=== PATIENT | female | born 1930 | race Caucasian/White ===

== ENCOUNTER 2016-04-20 17:13 | Inpatient (IN) | payer MEDICARE ==
[~2016-04-20] VITALS: Ht 177.8 cm; Wt 64.7 kg
--- NOTE | ~2016-04-20 | ECH ---
Transthoracic Echocardiography Report (TTE) Demographics Patient Name MAVIS BRENNAN Date of Study 04/21/2016 Patient Number [id number] Visit Number [id number] Date of 1930 Room Number 404 Accession Number [id number] Gender Female Age 86 year(s) Referring Devika Steiner MD Shopper Blanca Whaley Physician RDCS Physician Interpreting Cristina WAN Water Pollution Specialist Physician Allan Supervising Ordering Physician Devika Steiner MD, MD/MLP Nurse Stress Cane Flume Chute Operator Conclusions Contractility Score Summary Normal Left Ventricular contractility was noted. Summary Technically good exam. The estimated left ventricular ejection fraction is 60%. Mild concentric left ventricular hypertrophy. The left atrium is moderately dilated by LA volume index measurement. Informed consent was obtained, bubble study was done, there is no evidence for a PFO or ASD. Mild prolapse of the anterior mitral valve leaflet(s). Mild posteriorly directed mitral regurgitation by color Doppler. There is mild aortic regurgitation by color Doppler. Mild tricuspid regurgitation by color Doppler. There is mild pulmonary hypertension. The pulmonary pressure (RVSP) is 42 mmHg. Recommendation The patient will be given the results of this study by the physician who ordered the exam. Procedure Type of Study TTE procedure:Echo Complete SF. Procedure Date Date: 04/21/2016 Start: 01:25 PM Technical Quality: Good visualization Indications:CVA and Atrial fibrillation. Appropriate Use Criteria: 9 Height: 70 inches Weight: 143 pounds BSA: 1.81 m Rhythm: Atrial fibrillation HR: 64 bpm BP: 166/103 mmHg M-Mode/2D Measurements LV Diastolic Dimension: 4.55 cm LV Systolic Dimension: 2.98 cm LV Septum Diastolic: 1.03 cm LV PW Diastolic: 0.99 cm AO Root Dimension: 3.2 cm Cardiac Output: 3.08 l/min LA Dimension: 3.97 cm Cardiac Index: 1.7 l/min*m RV Diastolic Dimension: 2.59 cm LA volume index: 44 ml/m LVOT: 1.95 cm LVOT VTI: 16.14 cm RV Base: 2.3 cm LV Stroke volume: 48.18 ml RV Mid: 1.6 cm LV Stroke volume index: 26.62 ml/m TAPSE: 1.8 cm TDI-S': 11 cm/s Doppler Measurements AV Peak Velocity: 1.1 m/s MV Peak E-Wave: 0.93 m/s AV Peak Gradient: 4.84 mmHg AV Mean Gradient: 2.45 mmHg MV P1/2t: 57.8 msec LVOT Peak Velocity: 0.92 m/s AV Area (Continuity):2.41 cm AV P1/2t: 557 msec MV Area (PHT): 3.8 cm TR Velocity:3.06 m/s PV Peak Velocity: 0.68 m/s TR Gradient:37.45 mmHg PV Peak Gradient: 1.87 mmHg Estimated RAP:5 mmHg Estimated PASP: 42.45 mmHg Estimated RVSP: 42 mmHg E' Septal Velocity: 0.11 m/s E' Lateral Velocity: 0.13 m/s RA Area: 14.35 cm Findings Left Ventricle The left ventricle is normal in size . Mild concentric left ventricular hypertrophy. Diastolic function indeterminate due to patient's arrhythmia. Right Ventricle Normal right ventricle structure and function. Left Atrium The left atrium is moderately dilated by LA volume index measurement. Informed consent was obtained, bubble study was done, there is no evidence for a PFO or ASD. Right Atrium Normal right atrial size. Mitral Valve Mild prolapse of the anterior mitral valve leaflet(s). Mild posteriorly directed mitral regurgitation by color Doppler. Aortic Valve Normal aortic valve structure and function. There is mild aortic regurgitation by color Doppler. Tricuspid Valve Normal tricuspid valve structure and function. Mild tricuspid regurgitation by color Doppler. There is mild pulmonary hypertension. The pulmonary pressure (RVSP) is 42 mmHg. Pulmonic Valve Normal pulmonic valve structure and function. Mild pulmonic valve regurgitation by color Doppler. Pericardial Effusion No evidence of pericardial effusion. Miscellaneous Visualized portions of the aortic root and ascending aorta appear normal in size. Pleural Effusion No evidence of pleural effusion. Contractility Score LV regional wall motion:(0-Non visualized 1-Normal 2-Hypokinesis 3-Akinesis 4-Dyskinesis 5-Aneurysm) Signature
--- NOTE | 2016-04-27 13:28 | ER ---
ADMIT: 04/20/2016 RM/LOC: 404 [facility] MR#: [id number] [address] [facility] [place], [place] [address] MAVIS BRENNAN [address] [place] [address] Emergency Room Report SEX: F AGE: 86 : 1930 DATE: 04/20/2016 ADDENDUM: This patient comes to the ER because she is in an independent living. They were noticed that no one had talked to her for 2 or 3 days. They went in and found her on the floor today covered in feces and urine. She is confused and she denies any pain. PHYSICAL EXAMINATION: I do not notice any injuries. I palpated through her head and her extremities and did not elicit any pain. Her abdomen is soft and her lungs sound clear. Her white count was normal, her lactic acid was 3.1, her CK was 731, MB was 9.3, and she had positive leukocyte esterase in her urine and positive nitrites and numerous white cells. It was also noted that she had AFib and her family does not remember her having AFib in the past. There were no meds that she was on that suggested that. CT scan showed a subacute stroke. I did speak with Dr. Fortune, and he will admit this patient. DIAGNOSES: 1. Subacute stroke. 2. Urinary tract infection. 3. Atrial fibrillation. IV of normal saline was started. We did do sepsis protocol on the patient. She was given Levaquin. I spoke with Dr. Fortune, and he will admit the patient. Please see his dictation. PARUL Jimenez / Navin Hernandez MD / sinal JOB #: [id number] CC: Charles Fortune MD, Attending Physician Charles Fortune MD, Family Physician
[2016-05-19] MEDS ORDERED: COUMADIN5 MG PO (11:37)
[2016-05-19] MEDS ORDERED: COREG DPS12.5 MG PO (11:37)
[2016-05-19] MEDS ORDERED: SINEMET 25/1001 TAB PO (11:38)
[2016-05-19] MEDS ORDERED: LANOXIN DPS0.125 MG PO (11:38)
[2016-05-19] MEDS ORDERED: SENOKOT S1 TAB PO ×2 (11:38→11:41)
[2016-05-19] MEDS ORDERED: VITAMIN D1000 UNIT PO (11:40)
[2016-05-19] MEDS ORDERED: MAALOX DPS30 ML PO (11:41)
[2016-05-19] MEDS ORDERED: DULCOLAX-DPS10 MG PR (11:41)
[2016-05-19] MEDS ORDERED: TYLENOL DPS325 MG PO (11:41)
[2016-05-19] MEDS ORDERED: EXELON1 EAC1 TD (11:41)
[2016-05-19] MEDS ORDERED: SPORTS CREAM85 GM TP (11:42)
--- NOTE | 2016-05-24 13:16 | HP ---
ADMIT: 04/20/2016 RM/LOC: 404 [facility] MR#: [id number] [address] [facility] [address] [place] [id number] [place] [address] History and Physical SEX: F AGE: 86 : 1930 DATE OF SERVICE: CHIEF COMPLAINT: 1. Stroke. 2. New onset atrial fibrillation. CLINICAL HISTORY: Venkat Brennan is an elderly , who came to live in the assisted living facility here in [place] from her home in [place], [place]. She used to live in a three-story home and it became increasingly more and more difficult for her to negotiate stairs etc,. Inherent in some of this was also some memory lapses which were intermittent, discounted by the family but seemingly more significant. She was in her usual state of good health but last seen approximately three days prior to being found. She was found on the floor of her apartment after no one had seen her for three days. This included the family or staffing at assisted living. She was found to be obviously been there for a while, covered in urine and apparently feces according to the ER reports. The family cannot corroborate her position she was found in as she was transferred to the emergency room, where they saw her post evaluation. PAST MEDICAL HISTORY: Obtained from the patient and her son. This includes bilateral total knee replacements, left ankle fracture with ORIF, prior diverticulitis with diverting colostomy and subsequent reanastomosis, prior appendicitis, and appendectomy. ILLNESSES: Mild memory impairment, chronic tremor and titubation, and hypertension. MEDICATIONS: 1. Primidone and Inderal for tremor. 2. Lisinopril and potassium for hypertension. SOCIAL HISTORY: She is a and lived by herself until approximately two months ago when she moved to assisted living in the [place] area. She has not established herself with a physician here in [place]. She does not smoke or drink. REVIEW OF SYSTEMS: Her son and her denied any prior cardiovascular disease, any prior knowledge of atrial fibrillation, palpitations, syncope, or prior stroke. On close questioning, son does admit that there were some memory lapses, but he minimizes them. She has not had any bowel or bladder incontinence in the past, recurrent infections, or recurrence of the diverticulitis. He is unsure whether she has had any colonoscopy at any time recently. FAMILY HISTORY: Noncontributory. PHYSICAL EXAMINATION: GENERAL: Examination reveals a white female. She does not know the current president, slightly off on her dates and believes that ADMIT: 04/20/2016 RM/LOC: 404 [facility] MR#: [id number] [address] [place] [id number] [place], [place] [address] [address] History and Physical SEX: F AGE: 86 : 1930 she is in [place], [place]. HEAD AND NECK: Shows minimal left facial weakness without specific other findings. NECK: I cannot detect any carotid bruits. There is no obvious goiter. CARDIAC: Her pulse rate today is 84 and regular, consistent with atrial fibrillation and controlled ventricular response. LUNGS: Clear. ABDOMEN: Benign. Incisions well healed without entrapment or hernia. EXTREMITIES: Preserved pulses. No ischemic changes. Significant weakness in left upper extremity, less or so in the left lower extremity. NEURO: I cannot tell whether there is extinguished visual loss on the left side. Her speech is faltering, consistent with her tremor. She does have significant titubation and seems to have fluent speech, however. She is edentulous and does not have her dentures in place at the current time. She answers questions for the most part appropriately. LABORATORY AND X-RAY DATA: EKG demonstrates atrial fibrillation with controlled ventricular response. There is no ischemia or signs of prior heart disease. Laboratory is as reported. Current blood pressure, however, is a little higher than we would like and falls out of the parameters that we requested to be followed. We will adjust such. IMPRESSION: 1. New onset atrial fibrillation. 2. Embolic stroke secondary to atrial fibrillation. 3. Hypertension. 4. Memory loss. 5. Titubation/significant tremor. 6. Status post bilateral knee replacements. 7. Status post diverticulitis with diverting colostomy and reanastomosis. 8. Status post appendectomy. We will start her on better hypertensive control and would like the nursing ADMIT: 04/20/2016 RM/LOC: 404 [facility] MR#: [id number] [address] [address] [place] [address] History and Physical SEX: F AGE: 86 : 1930 personnel to follow the parameters that have been given. P.R.N. hydralazine will be given. She is currently on heparin. I find no evidence currently of hemorrhagic stroke. We will follow this however with further imaging in the next 24 hours to exclude the possibility of the heparin triggering bland infarct becoming hemorrhagic. She is at risk for such. Unfortunately, we do not have to regain alternative because of her atrial fibrillation. Carotid ultrasound, echocardiogram, metabolic assessment, all will be undertaken on a timely basis with the emphasis on low-dose IV heparin protocol and hypertension control in the meantime. We will try and establish with family the provisions of her current living will, which they are not aware of in detail. Overall prognosis with significant stroke is guarded. We are hopeful that she will have some recovery. Charles Fortune MD/ bashir JOB #: [id number] CC: Charles Fortune, Attending Physician Charles Fortune, Family Physician
--- NOTE | 2016-07-05 12:38 | DS ---
ADMIT: 04/20/2016 RM/LOC: 404 [facility] MR#: [id number] [address] [place] [address] Discharge Summary SEX: F AGE: 86 : 1930 ADMISSION DATE: 04/20/2016 DISCHARGE DATE: 04/26/2016 DISMISSAL DIAGNOSES: 1. Cerebrovascular accident with left hemiplegia. 2. Chronic tremor with titubation. 3. Urinary tract infection. 4. Urinary retention. 5. New onset of atrial fibrillation. 6. Coumadin anticoagulation. 7. Probable mitral valve prolapse with mild mitral regurgitation. 8. Hypokalemia. 9. Urinary tract infection due to streptococcus mitis and/or viridans, resolved. 10.Acute right cerebral hemisphere infarction with possible petechial hemorrhage, right frontal lobe. 11.Mild memory impairment. 12.Left ventricular hypertrophy. 13.Chest pain, known cardiac. CLINICAL HISTORY: Venkat James came in with a stroke. The patient was found to have atrial fibrillation, believed to be new. She has a background history of chronic titubation, generalized weakness, mild memory loss, and was recently had been placed in a nursing facility, but had not established with a physician here in [place]. She had some mild memory lapses when staying independently on her own also contributing to her admission to the senior care. She is status post bilateral knee replacement and chronic essential tremor and titubation without definite Parkinson's features. She was admitted with left-sided weakness and this improved in the hospital setting. She demonstrated to have a urinary tract infection along with some mild retention and hypertension. Echocardiogram demonstrated mitral valve prolapse, mild mitral regurgitation, mild pulmonary hypertension. CRP was mildly elevated. Laboratory data were unremarkable including normal lipid profile, and carotid ultrasound was unremarkable. CT scan and subsequent MRI demonstrated an acute infarct in the right cerebral hemisphere with possible tiny petechial hemorrhage in one of the dominant infarct in the high right frontal lobe. This appeared to be a multicentric cerebral infarct in the distribution of the right middle cerebral artery. However, possibility of that showers into right cerebellar hemisphere may have also been the case, however, all these appeared to have the same age radiographically. Cervical spine MRI suggested advanced degenerative arthritis. ADMIT: 04/20/2016 RM/LOC: 404 [facility] MR#: [id number] [address] [place] [address] Discharge Summary SEX: F AGE: 86 : 1930 HOSPITAL COURSE: The patient was brought into the hospital with the acute stroke and new onset of atrial fibrillation. Anticoagulation was undertaken with heparin. We find indication for dual anticoagulation therapy. We watched her carefully, did not convert her to Coumadin initially because of our concern about the size of the watershed-type infarct and the small petechial changes in the MRI. Subsequently, however, we were able to convert her to oral Coumadin. She was able to take things orally without interval difficulties. IV digoxin was used for rate control. An evaluation with echocardiogram etc., were undertaken. Neurology was not available immediately, and management of blood pressure was a "primarily" targeted therapy. She demonstrated a urinary tract infection with the strep species, which cleared. She developed some chest discomfort appearing to be noncardiac without recurrence. There is no evidence of endocarditis or other secondary phenomenon, and she was evaluated by IRU and has been accepted as a candidate. Temporary use of a Atkins catheter was indicated because of persistent urinary retention and efforts for removal will be undertaken. 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 ADMIT: 04/20/2016 RM/LOC: 404 [facility] MR#: [id number] [address] [place] [address] Discharge Summary SEX: F AGE: 86 : 1930 DISCHARGE MEDICATIONS: She was dismissed to IRU: 1. Coreg 3.125 b.i.d. 2. Lanoxin 0.125 daily. 3. Micro-K 10 mEq t.i.d. 4. Norvasc 2.5 p.o. b.i.d. 5. Pepcid 20 mg b.i.d. 6. Zestoretic 20/12.5 daily. 7. She will complete her five day heparin transition protocol. Daily monitoring for a protime will be undertaken. Charles Fortune MD/ sinal JOB #: [id number] CC: Charles Fortune MD, Attending Physician Charles Fortune MD, Family Physician Keon Durbin MD
== END 2016-04-26 14:15 | disposition short-term general hospital (02) | DRG 65 ==
LOC: ER 17:13 → 4PCU 19:20
PROVIDERS: ADMIT Internal Medicine
DX: I63.9 Cerebral infarction, unspecified (principal); N39.0 Urinary tract infection, site not specified; G81.94 Hemiplegia, unspecified affecting left nondominant side; I48.91 Unspecified atrial fibrillation; R26.81 Unsteadiness on feet; E87.6 Hypokalemia; R07.89 Other chest pain; R33.9 Retention of urine, unspecified; I34.1 Nonrheumatic mitral (valve) prolapse; B95.4 Other streptococcus as the cause of diseases classified elsewhere; R41.3 Other amnesia; R25.1 Tremor, unspecified; I10 Essential (primary) hypertension; Z96.653 Presence of artificial knee joint, bilateral; Z93.3 Colostomy status

== ENCOUNTER 2016-04-26 10:06 | Inpatient (IN) | payer MEDICARE ==
[~2016-04-26] VITALS: Ht 177.8 cm; Wt 61.6 kg
--- NOTE | 2016-05-02 19:25 | NUR ---
05/01/16 DAY SHIFT SUMMARY: PT TOTALLY DEPENDENT FOR EATING. GROOMING, DRESSING, BLADDER (CATH) AND W/C PROPULSION.
--- NOTE | 2016-05-02 19:27 | NUR ---
DAY SHIFT SUMMARY: VERY LITTLE CHANGE FROM 05/01-IS TAKING FLUIDS BETTER, BUT STILL REQUIRES TOTAL ASSIST.
--- NOTE | 2016-05-05 18:55 | NUR ---
DAY SHIFT SUMMARY:MIN ASSIST W/EATING; SEE OT FIM/NOTES FOR SHOWERING, GROOMING,DRESSING AND SHOWER TRANSFER. TOTAL ASSIST FOR TOILETING, BLADDER CATHETER MANAGEMENT, BED/W/C TRANSFERS AND W/C PROPULSION
--- NOTE | 2016-05-10 19:37 | NUR ---
DAY SHIFT SUMMARY: PT'S EATING IS SUPERVISED AND COAXED; GROOMING, DRESSING, TOILETING, BLADDER MANAGEMENT (IN/OUT CATHS), TRANSFERS AND W/C PROPULSION ARE ALL TOTAL CARE
[2016-05-19] MEDS ORDERED: COREG DPS12.5 MG PO (11:37)
[2016-05-19] MEDS ORDERED: COUMADIN5 MG PO (11:37)
[2016-05-19] MEDS ORDERED: SENOKOT S1 TAB PO ×2 (11:38→11:41)
[2016-05-19] MEDS ORDERED: LANOXIN DPS0.125 MG PO (11:38)
[2016-05-19] MEDS ORDERED: SINEMET 25/1001 TAB PO (11:38)
[2016-05-19] MEDS ORDERED: VITAMIN D1000 UNIT PO (11:40)
[2016-05-19] MEDS ORDERED: TYLENOL DPS325 MG PO (11:41)
[2016-05-19] MEDS ORDERED: MAALOX DPS30 ML PO (11:41)
[2016-05-19] MEDS ORDERED: EXELON1 EAC1 TD (11:41)
[2016-05-19] MEDS ORDERED: DULCOLAX-DPS10 MG PR (11:41)
[2016-05-19] MEDS ORDERED: SPORTS CREAM85 GM TP (11:42)
--- NOTE | 2016-05-31 10:52 | CO ---
ADMIT: 04/26/2016 RM/LOC: 611 [facility] MR#: [id number] [address] [address] [place] [address] Consultation SEX: F AGE: 86 : 1930 DATE OF CONSULTATION: 05/04/2016 ATTENDING PHYSICIAN: Richard Lopes CONSULTING PHYSICIAN: Keon Durbin MD REASON FOR CONSULTATION: Parkinsonism. HISTORY OF PRESENT ILLNESS: The patient is an 86-year-old woman who was admitted on 04/20/2016, with an ischemic stroke which is due to new onset atrial fibrillation. The stroke is embolic. The workup did not reveal any carotid stenosis. TTE was with EF 60 and there was no PFO. LDL in fact was 46. The patient was appropriately started on anticoagulation, and after stabilization, she was discharged to inpatient rehabilitation unit. As per the chart review, the patient had some difficulty with the gait and tremor prior to the admission. I am unsure of what was the duration of the symptoms before. MEDICATIONS: On outpatient basis originally include Coumadin and lisinopril. For current medications, please see EMR. PAST MEDICAL HISTORY: Bilateral knee replacement, ankle fracture on the left with ORIF, diverticulitis with diverting colostomy, appendectomy, cognitive impairment versus early dementia, chronic tremor, gait abnormality. SOCIAL HISTORY: No smoking or alcohol intake. ALLERGIES: NONE. FAMILY HISTORY: Noncontributory to current presentation. REVIEW OF SYSTEMS: Hard to obtain from the patient secondary to her reduced cognition. PHYSICAL EXAMINATION: VITAL SIGNS: Temperature 97.9, heart rate 84, respirations 24, blood pressure 151/91, saturation 96% on room air. GENERAL: The patient is at first lying supine in bed. HEAD: Normocephalic. NECK: Supple. CHEST: Normal respiratory raises. CARDIOVASCULAR: Irregularly irregular. ABDOMEN: Nondistended. EXTREMITIES: No clubbing or cyanosis. NEUROLOGICAL EXAMINATION: The patient is awake and alert. She is oriented only to self, disoriented to place and disoriented to time, forgetful, slurred speech. Some aphasia noted. Cranial nerves; visual duckworth are intact. Pupils equal, reactive. Extraocular muscles intact. Facial sensation intact. ADMIT: 04/26/2016 RM/LOC: 611 [facility] MR#: [id number] [address] [address] [place] [address] Consultation SEX: F AGE: 86 : 1930 Face is mildly asymmetric with left-sided facial weakness. Hearing to voice is reduced. Uvula midline. Palatal arches symmetric. Shoulder shrug symmetric. Tongue midline, freely moveable. Motor examination reveals mild left-sided weakness, normal tone bilaterally. There is reduction of the amplitude on fast movements of both upper extremities in both hands. There is significant truncal rigidity noted. Coordination; [id number] left-sided ataxia noted. Out of proportion to weakness. Gait attempted. There was minimal participation even in bed. Mobility; she goes strongly to retropulsion. When stood up, she was shuffling on a couple of steps seen. Due to severe instability, the patient was laid back to the bed. ASSESSMENT: 1. Parkinsonism. 2. Ischemic stroke secondary to atrial fibrillation, embolic. 3. Cognitive impairment/dementia. PLAN: We will start Sinemet 25/100 mg p.o. t.i.d. 1 hour prior to meals. If she is tolerating it well, we will start Exelon tomorrow or the day after. Thank you very much for this interesting consultation. I will continue to follow along. Keon Durbin MD/ bashir JOB #: [id number] CC: Richard Lopes, Attending Physician Charles Fortune, Family Physician
--- NOTE | 2016-06-16 07:13 | DS ---
ADMIT: 04/26/2016 RM/LOC: 611 [facility] MR#: [id number] [address] [address] SARAH [place] [address] General Discharge Summary SEX: F AGE: 86 : 1930 ADMISSION DATE: 04/26/2016 DISCHARGE DATE: 05/18/2016 DISCHARGE DIAGNOSES: Stroke, 01.1, left body involvement, right brain; I63.511, cerebral infarction due to unspecified occlusion or stenosis of right middle cerebral artery; on set of 04/20/2016. Other comorbid conditions per initial H and P. Other diagnoses per hospital course below. HOSPITAL COURSE: Please see my initial H and P for details prior to transfer to the IRU. Vancomycin discontinued on transfer. Coumadin continued and that served as DVT prophylaxis along with heparin protocol until INR therapeutic and daily pro-time, INR. Atkins was removed upon awakening the day after transfer for a voiding trial. Cardiac precautions used in therapy. DNR/DNI decision on 04/26/2016. Heparin drip continued until INR greater than 2. Lab was monitored regularly. Pepcid changed to daily. Surfak and Senokot-S adjusted for constipation. PVRs remained high at 615, 592 during voiding trial. Coumadin given per INR per Dr. Fortune. Dietitian followed to optimize nutrition. Pharmacy followed to optimize medication management. Dulcolax suppository given for constipation and enema as necessary. The patient was too fatigued to participate in therapy session on 04/27/2016. PVRs remained high. In and out catheterization done to manage bladder. Coumadin was adjusted based on the INR. Indwelling Atkins catheter placed on 04/28/2016. UA with micro, no culture done. Pepcid discontinued. Norvasc started for hypertension and place on Zestoretic Prinzide due to nonspecific low blood pressure readings. Lisinopril [address] daily in place of that. Senokot-S adjusted for constipation. For supratherapeutic INR on 04/29/2016, heparin drip was discontinued and Coumadin was held. The patient was not doing as well on 04/29/2016, so CT head noncontrast was done DARYA. EKG done to assess atrial fibrillation. Blood pressure, heart rate 2 times per shift. INR monitored. Chest x-ray obtained. DuoNeb, EzPAP obtained. D5 normal saline at 8 mL an hour for dehydration given. Patient downgraded to nectar thick liquids on 04/30/2016. EKG, CK-MB, troponin checked along with urine culture and sensitivity. IV fluids continued for another 24 hours after the initial 24 hours and then discontinued Hep-Lock IV. Zestril adjusted to twice daily dosing for some continued nonspecific low blood pressure readings. Incentive spirometry encouraged. EzPAP done. Inadequate IS or elevated temperature, EzPAP was p.r.n. for those conditions. Meds were given for constipation. Nonspecific low blood pressure readings continued, so Norvasc was discontinued. Normal saline, IV fluids continued until 05/01/2016. Continued nonspecific low blood pressure readings on 05/01/2016, for which Zestril was held, but continued Coreg. Coumadin adjusted based on INR results. Zestril discontinued finally on the evening of 05/01/2016. Final culture on the urine was no growth. INR subtherapeutic, for which Lovenox was given x1 and then Coumadin adjusted, INR daily. Coreg increased to 6.25 mg b.i.d. Pepcid restarted for GERD, p.o. fluid encouraged. Fluconazole started for oral thrush. Neurology consulted for parkinsonism after recent stroke. Good oral hygiene was encouraged. Vitamin D deficiency replaced. Neurology agreed with parkinsonism diagnosis, startedon Sinemet for that. Coumadin again adjusted based on the INR result. Patient upgraded to thin liquids on ADMIT: 04/26/2016 RM/LOC: 611 [facility] MR#: [id number] [address] [facility] [address] [place] [id number] [place] [address] General Discharge Summary SEX: F AGE: 86 : 1930 05/05/2016. Coumadin again adjusted based on the INR results. Fluid encouraged and assisted by all team members. Anyone who saw the patient was giving her a drink. UA with micro, no culture done again. Exelon patch started by Neurology on 05/05/2016. Atkins discontinued on 05/06/2016 due to UA looking dirty. Did a voiding trial after 2 voids and did another urinalysis with micro. Suppository after supper, warm water enema for constipation. Postvoid residuals remained high anywhere from to 215-625. Diflucan discontinued after appropriate course that did affect the INR result, interaction with Coumadin. We did in and out cath. Instead of indwelling Atkins, we sent a cath UA for micro, no culture. very well b.i.d., Mycelex Kylie q.i.d. x3 days. Macrobid started for the UTI. Postvoid residuals came down to 215-275. Digoxin level was checked. In and out cath done q.i.d. for urinary retention. E. coli UTI, continued on Macrobid. Pepcid discontinued to decrease the risk of C. diff. Coreg increased to 12.5 mg for hypertension. UA with micro, no culture repeated. Plan on Macrobid 10 days. Did a trial of timed void sitting at the commode or toilet. Continue CIC if PVRs greater than 300 mL or if unable to void. Mechanical soft, thin liquids by 05/13/2016. UA followed up on Tuesday before discharge. Senokot-S adjusted for constipation. No longer on IV medications by the time of discharge. PVRs remained high. The lowest one we got was 182, otherwise the PVRs remained high. Coreg again adjusted on the timing. Patient was sent to [facility] with a Atkins in place with Urology followup as an outpatient. The patient was medically stable at the time of discharge. DISCHARGE DISPOSITION: [facility] for continued subacute rehabilitation. Please see IRU interdisciplinary discharge summary for details regarding progress in therapy. DISCHARGE MEDICATIONS: Please see discharge med rec. FOLLOWUP: Dr. Fortune on May 29, Dr. Durbin on July 15, Urology on July 07. Richard Lopes MD/ bashir JOB #: [id number] CC:
== END 2016-05-18 12:10 | DRG 57 ==
LOC: 6IRU 14:11
PROVIDERS: ADMIT Physical Medicine & Rehabilitation
PROC: F08Z2FZ Grooming/Personal Hygiene Treatment using Assistive, Adaptive, Supportive or Protective Equipment (ICD-10-PCS; principal; 2016-04-26)
PROC: F08Z1ZZ Dressing Techniques Treatment (ICD-10-PCS; principal; 2016-04-26)
PROC: F06ZDZZ Swallowing Dysfunction Treatment (ICD-10-PCS; principal; 2016-04-26)
PROC: F07Z9ZZ Gait Training/Functional Ambulation Treatment (ICD-10-PCS; principal; 2016-04-26)
DX: I69.391 Dysphagia following cerebral infarction (principal); G20 Parkinson's disease; B37.0 Candidal stomatitis; R41.4 Neurologic neglect syndrome; I69.354 Hemiplegia and hemiparesis following cerebral infarction affecting left non-dominant side; F03.90 Unspecified dementia, unspecified severity, without behavioral disturbance, psychotic disturbance, mood disturbance, and anxiety; I48.91 Unspecified atrial fibrillation; E83.39 Other disorders of phosphorus metabolism; I10 Essential (primary) hypertension; N39.0 Urinary tract infection, site not specified; B96.20 Unspecified Escherichia coli [E. coli] as the cause of diseases classified elsewhere; E55.9 Vitamin D deficiency, unspecified; I69.322 Dysarthria following cerebral infarction; I69.319 Unspecified symptoms and signs involving cognitive functions following cerebral infarction; I69.320 Aphasia following cerebral infarction; I69.393 Ataxia following cerebral infarction; R13.10 Dysphagia, unspecified; I69.398 Other sequelae of cerebral infarction; R03.1 Nonspecific low blood-pressure reading; K59.00 Constipation, unspecified; R33.9 Retention of urine, unspecified; K57.90 Diverticulosis of intestine, part unspecified, without perforation or abscess without bleeding; E86.0 Dehydration; K21.9 Gastro-esophageal reflux disease without esophagitis; Z66 Do not resuscitate; Z96.653 Presence of artificial knee joint, bilateral